=== PATIENT | male | born 1930 | race American Indian/Alaskan Native ===

== ENCOUNTER 2018-09-20 12:07 | Day surgery (SDC) | payer MEDICARE, OTHER ==
[2018-09-19 08:27] VITALS: BMI 24.8
[2018-09-20 12:48] LABS: BASO # 0.07 K/mm3 (0.0-2.0); BASO % 1.2 % (0.0-3.0); EOS # 0.2 (0.0-0.7); EOS % 3.8 % (1.5-5.0); HEMOGLOBIN 14.8 g/dL (14.0-18.0); LYMPH # 1.6 (1.2-3.4); LYMPH % 26.9 % (22.0-35.0); MEAN CELL VOLUME 97.4 fl (80.0-105.0); MEAN CORPUSCULAR HEMOGLOBIN 31.8 pg (25.0-35.0); MEAN CORPUSCULAR HGB CONC 32.6 g/dl (31.0-37.0); MEAN PLATELET VOLUME 10.5 fl (7.0-11.0); MONO # 0.4 (0.1-0.6); MONO % 7.2 % (1.0-6.0); RBC 4.66 10^6/uL (3.5-6.1); RED CELL DISTRIBUTION WIDTH 12.5 % (11.5-14.5); WHITE BLOOD COUNT 5.8 10^3/uL (4.5-11.0)
[2018-09-20 12:57] LABS: CALCIUM 9.4 mg/dL (8.4-10.5); INR 1.12; PARTIAL THROMBOPLASTIN TIME 31.2 Seconds (26.9-38.3); PROTHROMBIN TIME 12.7 SECONDS (9.4-12.5)
[2018-09-20] MEDS ORDERED: Midazolam 2 MG/2 ML VIAL ONE (14:56)
[2018-09-20] MEDS ORDERED: Lidocaine 1% Inj (20ml) ONE (14:57)
[2018-09-20] MEDS ORDERED: Midazolam 2 MG/2 ML VIAL IVP ONE (15:30)
[2018-09-20] MEDS ORDERED: Oxycodone/Acetaminophen 5/325 mg Tab PO PRN (15:43)
[2018-09-20] MEDS ORDERED: Sodium Chloride 0.45% 1,000 ML IV SCH (15:45)
--- NOTE | 2018-09-20 16:15 | CT ---
PROCEDURE: CT guided left renal biopsy. HISTORY: 4 cm solid left renal mass. Evaluate for malignancy. PHYSICIAN(S): Niko Norris MD. TECHNIQUE: The relative risks and indications of the procedure were explained to the patient and his and consent obtained. The patient was placed prone on the CT scanner and preliminary images through the kidneys obtained. Conscious sedation and monitoring were provided throughout the procedure by a nurse. There is a 4 cm noncalcified mass in the posterior aspect of the left kidney.. A left posterior approach was selected and the area prepped and draped in the usual sterile fashion. 1% Xylocaine was used to anesthetize the skin and soft tissues. A 17-gauge guiding needle was advanced into the 4 cm left renal mass. Its position was confirmed with CT. Using coaxial technique, multiple core biopsies were obtained. The postprocedure images show no evidence of significant hemorrhage. IMPRESSION: 1. CT-guided left renal biopsy as described above.
[2018-09-20 16:49] VITALS: O2SAT 96
[2018-09-20 17:23] VITALS: BP 145/68; PULSE 71; RESP 20; TEMP 97.5
== END 2018-09-20 17:03 | disposition home or self-care (01) ==
LOC: SDS 12:07
PROVIDERS: ATTEND Radiology Vascular & Interventional Radiology
DX: C64.2 Malignant neoplasm of left kidney, except renal pelvis (principal); I10 Essential (primary) hypertension; I25.10 Atherosclerotic heart disease of native coronary artery without angina pectoris
CPT/HCPCS: 36415; 50200; 77012; 80048; 85025; 85610; 85730; 88305; J2250; J2405; J3010; J7030

== ENCOUNTER 2018-11-09 09:28 | Outpatient (CLI) | payer MEDICARE, OTHER | END 2018-11-09 09:29 | disposition home or self-care (01) | LOC: RAD 09:28 ==